=== PATIENT | male | born 1955 ===

== ENCOUNTER 2022-07-02 11:23 | Inpatient (IN) | payer MEDICARE ==
[~2022-07-02] VITALS: Ht 167.6 cm; Wt 108.3 kg
[2022-07-02] VITALS (442 sets, daily range): BP systolic 104–130; BP diastolic 63–79; PULSE 71–85; TEMP 98.2–98.9; O2SAT 80–100
[2022-07-02 12:08] LABS: HEMATOCRIT 44.5 % (42.0-52.0); HEMOGLOBIN 14.8 g/dl (13.5-18.0); MEAN CELL VOLUME 92 fl (80.0-100.0); MEAN CORPUSCULAR HEMOGLOBIN 31 pg (27-31); MEAN CORPUSCULAR HGB CONC 33 g/dl (33.0-37.0); MEAN PLATELET VOLUME 12.2 fl (7.4-10.4); PLATELET COUNT 153 K/mm3 (130-400); RED BLOOD COUNT 4.85 M/mm3 (4.20-5.60); REDCELL DISTRIBUTION WIDTH-CV 13.4 % (11.5-14.5)
[2022-07-02 12:27] LABS: ALANINE AMINOTRANSFERASE 29 U/L (0-55); ALBUMIN 3.1 gm/dL (3.4-4.8); ALKALINE PHOSPHATASE 114 U/L (40-150); ANION GAP 20 mmol/L (7-16); AST,SGOT 18 U/L (5-34); BAND 25 % (0-10); BILIRUBIN,TOTAL 1.7 mg/dL (0.2-1.2); BLOOD UREA NITROGEN 31 mg/dL (8-26); CALCIUM 8.1 mg/dL (8.4-10.2); CARBON DIOXIDE 16 mmol/L (23-31); CHLORIDE 95 mmol/L (98-107); CREATININE, serum 2.76 mg/dL (0.72-1.25); NEUTROPHILS 53 % (42.0-75.2); PLATELET ESTIMATE NORMAL (NORMAL); POTASSIUM 3.2 mmol/L (3.5-4.5); SODIUM 131 mmol/L (136-145); TOTAL PROTEIN 6.1 gm/dL (6.2-8.1)
[2022-07-02 12:28] LABS: LYMPHOCYTE 10 % (20.0-51.0)
[2022-07-02 12:30] LABS: ALCOHOL(ethanol),MEDICAL < 10 mg/dL (0-10); GLUCOSE 1116 mg/dL (70-99)
[2022-07-02 13:57] LABS: COLLECTION METHOD CLEAN CATCH
[2022-07-02 14:03] LABS: MUCOUS Present (NOT PRESENT); PH 5 (5-8); SQUAMOUS EPITHELIAL 0-2 /hpf (0-10); URINE APPEARANCE Hazy (CLEAR/HAZY); URINE BACTERIA None Seen /hpf (NONE SEEN); URINE BLOOD 3+ (NEGATIVE); URINE COLOR Yellow (YELLOW); URINE GLUCOSE 3+ (NEGATIVE); URINE KETONE Trace (NEGATIVE); URINE NITRATE Negative (NEGATIVE); URINE PROTEIN(semi-quant) Negative (NEGATIVE); URINE RBC 20-50 /hpf (0-2); URINE UROBILINOGEN Negative (NEGATIVE)
[2022-07-02 14:18] LABS: TRICYCLIC ANTIDEPRESS URINE NEGATIVE
--- NOTE | 2022-07-02 17:30 | NUR ---
PATIENT HAS CANE IN THE ROOM BROUGHT OVER FROM ED; PATIENT IS WEARING A NECKLACE, BRACELET AND WATCH. BELONGINGS WERE BROUGHT OVER IN BAGS FROM THE ED AND ARE IN THE PATIENTS ROOM.
--- NOTE | 2022-07-02 18:30 | NUR ---
PATIENT ARRIVED ON THE UNIT AT APPROX 1700 VIA NURSE FROM ED; PATIENT ARRIVED WITH AND CONTINUED WEARING OXYGEN AT 2 LPM VIA NC. VITAL SIGNS WERE ALL WITHIN NORMAL LIMITS. PATIENT IS PRIMARILY POLISH SPEAKING BUT DOES UNDERSTAND AND SPEAK SOME BOLIVIAN. PATIENT HAD INSULIN AND NS RUNNING UPON ARRIVAL, THE FLUIDS WERE BEING BOLUSED IN AND THE INSULIN WAS BEING TITRATED BASED ON DKA PROTOCOL. DR. SIM WAS NOTIFIED OF PATIENTS ARRIVAL AND WITH THE USE OF VOYCE USED A POLISH SPEAKING INTREPRETOR, SESSION NUMBER [id number].
[2022-07-02 19:26] LABS: CREATININE, serum 1.76 mg/dL (0.72-1.25)
[2022-07-02 19:29] LABS: POTASSIUM 2.7 mmol/L (3.5-4.5)
[2022-07-02 21:24] LABS: CALCIUM 7.9 mg/dL (8.4-10.2); CREATININE, serum 1.61 mg/dL (0.72-1.25); POTASSIUM 3.2 mmol/L (3.5-4.5)
[2022-07-02 23:29] LABS: CALCIUM 7.7 mg/dL (8.4-10.2); CREATININE, serum 1.33 mg/dL (0.72-1.25); POTASSIUM 3.6 mmol/L (3.5-4.5)
[2022-07-03] VITALS (846 sets, daily range): BP systolic 98–164; BP diastolic 43–87; PULSE 72–115; TEMP 98–98.9; O2SAT 44–100
[2022-07-03 01:38] LABS: CALCIUM 7.9 mg/dL (8.4-10.2); CREATININE, serum 1.24 mg/dL (0.72-1.25); POTASSIUM 3.5 mmol/L (3.5-4.5)
[2022-07-03 03:26] LABS: CALCIUM 7.8 mg/dL (8.4-10.2); CREATININE, serum 1.16 mg/dL (0.72-1.25); POTASSIUM 3.3 mmol/L (3.5-4.5)
[2022-07-03 06:05] LABS: HEMATOCRIT 38.5 % (42.0-52.0); HEMOGLOBIN 13.3 g/dl (13.5-18.0); MEAN CELL VOLUME 88 fl (80.0-100.0); MEAN CORPUSCULAR HEMOGLOBIN 31 pg (27-31); MEAN CORPUSCULAR HGB CONC 35 g/dl (33.0-37.0); MEAN PLATELET VOLUME 11.8 fl (7.4-10.4); PLATELET COUNT 110 K/mm3 (130-400); RED BLOOD COUNT 4.36 M/mm3 (4.20-5.60); REDCELL DISTRIBUTION WIDTH-CV 13.4 % (11.5-14.5)
[2022-07-03 06:49] LABS: BAND 30 % (0-10); EOSINOPHIL 3 % (0-4); LYMPHOCYTE 17 % (20.0-51.0); NEUTROPHILS 43 % (42.0-75.2); PLATELET ESTIMATE NORMAL (NORMAL)
[2022-07-03 06:52] LABS: CALCIUM 7.9 mg/dL (8.4-10.2); CREATININE, serum 0.99 mg/dL (0.72-1.25); MAGNESIUM 2.2 mg/dL (1.6-2.6)
[2022-07-03 07:09] LABS: TROPONIN-I 0.215 ng/mL (0.00-0.033)
--- NOTE | 2022-07-03 08:00 | NUR ---
EVALUATED PT'S RASH IN GROIN. STATES HE FEELS MAINLY FOLLICULITIS AND DERMATITIS. ISOLATOIN DCD
[2022-07-03 08:29] LABS: CALCIUM 7.9 mg/dL (8.4-10.2); CREATININE, serum 0.9 mg/dL (0.72-1.25); POTASSIUM 3.8 mmol/L (3.5-4.5)
--- NOTE | 2022-07-03 09:39 | NUR ---
Commander Internal Affairs met with patient to complete initial intake with the assistance of [facility] [employer] (session #[id number]) as patient primarily speaks irish, but does also speak some salvadorean. Patient reported he lives in [place], [place] and was traveling through [place]. Patient stated though that he plans to return to [place] upon discharge as he needs to pay his rent. Patient states he lives alone in [place] and plans to drive himself home at time of discharge. Patient is not and has four children, three sons and one daughter. Patient's sons are David (ph#[phone]), Jake (ph#[phone]), and Sharif (ph#[phone]). Patient also has a daughter named Ashely. Patient advised his children are over 18 and they best point of contact is his son, Charly.
[2022-07-03 09:52] LABS: CALCIUM 7.8 mg/dL (8.4-10.2); CREATININE, serum 0.87 mg/dL (0.72-1.25); POTASSIUM 3.5 mmol/L (3.5-4.5)
[2022-07-03 11:43] LABS: CALCIUM 8.1 mg/dL (8.4-10.2); CREATININE, serum 0.89 mg/dL (0.72-1.25); POTASSIUM 3.5 mmol/L (3.5-4.5)
--- NOTE | 2022-07-03 13:32 | NUR ---
LEVIMIR GIVEN PER . INSULIN DRIP STOPPED.
--- NOTE | 2022-07-03 14:46 | NUR ---
Lav Crewman spoke with Klaudia Dietitian about patient's new diabetes diagnosis. Klaudia advised patient was concerned about filling medications here vs back in [place]. Patient also reported to Klaudia that his medications were "messed up" in the past somewhere in [place]. EDMUND attempted to contact patient's son, David. EDMUND was unable to leave a message as David did not have voicemail set up.
--- NOTE | 2022-07-03 15:22 | NUR ---
CALLED AND STATES AFTER DISCUSSION WITH [facility] PT DOES NOT NEED TO BE TESTED OR PLACE IN ISOLATION.
[2022-07-04] VITALS (399 sets, daily range): BP systolic 112–167; BP diastolic 68–91; PULSE 79–96; TEMP 98–99.8; O2SAT 48–100
[2022-07-04 04:44] LABS: HEMOGLOBIN 12.8 g/dl (13.5-18.0); MEAN CELL VOLUME 89 fl (80.0-100.0); MEAN CORPUSCULAR HEMOGLOBIN 31 pg (27-31); MEAN CORPUSCULAR HGB CONC 35 g/dl (33.0-37.0); MEAN PLATELET VOLUME 11.8 fl (7.4-10.4); PLATELET COUNT 95 K/mm3 (130-400); RED BLOOD COUNT 4.14 M/mm3 (4.20-5.60); REDCELL DISTRIBUTION WIDTH-CV 13.4 % (11.5-14.5)
[2022-07-04 05:10] LABS: CALCIUM 8.3 mg/dL (8.4-10.2); CREATININE, serum 0.77 mg/dL (0.72-1.25); POTASSIUM 3.3 mmol/L (3.5-4.5)
[2022-07-04 05:36] LABS: BAND 26 % (0-10); EOSINOPHIL 2 % (0-4); LYMPHOCYTE 16 % (20.0-51.0); NEUTROPHILS 53 % (42.0-75.2); PLATELET ESTIMATE NORMAL (NORMAL)
--- NOTE | 2022-07-04 08:44 | NUR ---
BEDSIDE REPORT RECEIEVED FROM JUANCARLOS RUIZ. PT RESTING IN BED AT THIS TIME. NO MEDS INFUSING. VSS. PT DID REMOVE IV TO L HAND, BLEEDING IS CONTROLLED. CALL LIGHT IN REACH.
--- NOTE | 2022-07-04 17:44 | NUR ---
REPORT CALLED TO JUANCARLOS MCLEAN. PT TRANSFERRED TO ROOM 341 VIA WC. VSS. PT TOOK BAG OF CLOTHES, NECKLACE, PHONE WITH HIM.
--- NOTE | 2022-07-04 18:24 | NUR ---
PT ARRIVED TO ROOM 341 VIA WC APPROXIMATELY 1758, VSS, FALL PRECAUTIONS IN PLACE, CALL LIGHT IN REACH
--- NOTE | 2022-07-04 23:18 | NUR ---
UPON ASSESSMENT, BARREL BUILDER USED. PT ALERT AND ORIENTED TO PERSON, PLACE, TIME, AND SITUATION. ONLY REQUESTS IS FOR CRACKERS AND A SNACK. PT INSISTS NO NEED FOR A BED ALARM, THOUGH THIS RN HAS NOT WITNESSED AMBULATION AT THIS TIME. WILL CONTINUE TO MONITOR CLOSELY. FULL PPE UTILIZED
[2022-07-05] VITALS (7 sets, daily range): BP systolic 102–141; BP diastolic 51–86; PULSE 66–92; TEMP 97.9–98.6
[2022-07-05 07:29] LABS: HEMOGLOBIN 11.9 g/dl (13.5-18.0); MEAN CELL VOLUME 90 fl (80.0-100.0); MEAN CORPUSCULAR HEMOGLOBIN 30 pg (27-31); MEAN CORPUSCULAR HGB CONC 33 g/dl (33.0-37.0); MEAN PLATELET VOLUME 12.7 fl (7.4-10.4); PLATELET COUNT 113 K/mm3 (130-400); RED BLOOD COUNT 3.99 M/mm3 (4.20-5.60); REDCELL DISTRIBUTION WIDTH-CV 13.7 % (11.5-14.5)
[2022-07-05 07:31] LABS: HEMATOCRIT 35.7 % (42.0-52.0)
[2022-07-05 07:44] LABS: CALCIUM 7.9 mg/dL (8.4-10.2); CREATININE, serum 0.78 mg/dL (0.72-1.25); POTASSIUM 3.4 mmol/L (3.5-4.5)
[2022-07-05 07:56] LABS: BAND 2 % (0-10); LYMPHOCYTE 11 % (20.0-51.0); NEUTROPHILS 80 % (42.0-75.2); PLATELET ESTIMATE DECREASED (NORMAL)
--- NOTE | 2022-07-05 22:29 | NUR ---
PT GAVE VERBAL PERMISSION WITH TEACHER LIP READING TO RELAY MEDICAL INFORMATION TO HIS DAUGHTER OVER THE PHONE AT THIS TIME.
[2022-07-06 00:04] VITALS: BP 123/70; PULSE 87; TEMP 98.4
[2022-07-06 04:00] VITALS: BP 149/54; PULSE 93; TEMP 97.7
--- NOTE | 2022-07-06 07:13 | NUR ---
VSS, PT RESTING IN BED, FALL PRECAUTIONS IN PLACE, PT A&O X4
[2022-07-06 07:25] VITALS: BP 94/50; PULSE 95; TEMP 100.4
[2022-07-06 07:52] LABS: BASO % 0.4 % (0.0-2.0); EOS # 0.1 K/mm3 (0.0-0.7); EOS % 1.6 % (0.0-4.0); GRAN # 4.7 K/mm3 (1.4-6.5); GRAN % 69.4 % (42.2-75.2); HEMOGLOBIN 11.4 g/dl (13.5-18.0); LYMPH # 1.4 K/mm3 (1.2-3.4); LYMPH % 20.2 % (20.0-51.0); MEAN CELL VOLUME 90 fl (80.0-100.0); MEAN CORPUSCULAR HEMOGLOBIN 30 pg (27-31); MEAN CORPUSCULAR HGB CONC 34 g/dl (33.0-37.0); MEAN PLATELET VOLUME 12.7 fl (7.4-10.4); MONO # 0.5 K/mm3 (0.1-0.6); MONO % 7.8 % (1.7-9.3); PLATELET COUNT 103 K/mm3 (130-400); RED BLOOD COUNT 3.78 M/mm3 (4.20-5.60); REDCELL DISTRIBUTION WIDTH-CV 13.4 % (11.5-14.5)
[2022-07-06 08:06] LABS: CALCIUM 7.8 mg/dL (8.4-10.2); CREATININE, serum 0.72 mg/dL (0.72-1.25); POTASSIUM 3.4 mmol/L (3.5-4.5)
--- NOTE | 2022-07-06 09:07 | NUR ---
PT REFUSING INSULIN AND HEPARIN, STATES HE HAS A MADRID,
[2022-07-06 09:30] LABS: HSV SOURCE BLOOD (())
[2022-07-06 12:07] VITALS: BP 92/54; PULSE 86; TEMP 98.5
[2022-07-06 17:40] VITALS: BP 147/78; PULSE 92; TEMP 98
[2022-07-06 20:10] VITALS: BP 137/61; PULSE 96; TEMP 99.5
--- NOTE | 2022-07-07 00:10 | NUR ---
pt refuses to let RN give heparin injection, upset about not getting anything good to eat for dinner, dinner tray untouched, offered sandwich box, pt stated he would eat that later, was able to get VS taken after pt given fresh ice water and diet sprite. pt also refused to let this RN obtain respiratory panel, will try again in am.
[2022-07-07 00:13] VITALS: BP 100/54; PULSE 93; TEMP 98.7
[2022-07-07 05:07] VITALS: BP 127/84; PULSE 88; TEMP 98
[2022-07-07 06:05] LABS: HEMOGLOBIN 11.3 g/dl (13.5-18.0); MEAN CELL VOLUME 88 fl (80.0-100.0); MEAN CORPUSCULAR HEMOGLOBIN 31 pg (27-31); MEAN CORPUSCULAR HGB CONC 35 g/dl (33.0-37.0); MEAN PLATELET VOLUME 11.6 fl (7.4-10.4); PLATELET COUNT 122 K/mm3 (130-400); RED BLOOD COUNT 3.68 M/mm3 (4.20-5.60); REDCELL DISTRIBUTION WIDTH-CV 13.3 % (11.5-14.5)
--- NOTE | 2022-07-07 06:12 | NUR ---
respiratory virus panel sent this am with am lab, pt reports mild headache, but no pain in groin area from rash, did not want anything for the MADRID. patrick cath patent/secure with 700 cc ailyn urine with heavy sediment out this am. pt drinking diet sprite and water, wanting to order breakfast. PICC line in TOSHIA patent/secure.
[2022-07-07 06:18] LABS: HEMATOCRIT 32.5 % (42.0-52.0)
[2022-07-07 06:25] LABS: CALCIUM 7.7 mg/dL (8.4-10.2); CREATININE, serum 0.71 mg/dL (0.72-1.25); POTASSIUM 3.2 mmol/L (3.5-4.5)
[2022-07-07 06:53] LABS: BAND 8 % (0-10); EOSINOPHIL 1 % (0-4); LYMPHOCYTE 21 % (20.0-51.0); NEUTROPHILS 58 % (42.0-75.2); PLATELET ESTIMATE NORMAL (NORMAL)
[2022-07-07 08:00] VITALS: BP 101/47; PULSE 86; TEMP 100.6
[2022-07-07] MEDS ORDERED: INSULIN PEN NE1 EAC1 MC (09:32)
[2022-07-07] MEDS ORDERED: LANCETS MC (09:32)
[2022-07-07] MEDS ORDERED: FREESTYLE PREC1 EAC5 MC (09:32)
[2022-07-07] MEDS ORDERED: BD ALCOHOL1 SWA MC (09:32)
[2022-07-07] MEDS ORDERED: GLUCOSE TEST ST1 DEV MC (09:32)
[2022-07-07] MEDS ORDERED: ASPIRIN E.C. 8181 MG PO (09:33)
[2022-07-07] MEDS ORDERED: LEVEMIR FLEX100 U/ML SQ (09:34)
[2022-07-07] MEDS ORDERED: AMOXICILLIN 8751 TAB PO (09:40)
[2022-07-07] MEDS ORDERED: GLUCOPHAGE500 MG/TAB PO (09:40)
[2022-07-07] MEDS ORDERED: NOVOLOG FLEX100 U/ML SQ (09:41)
[2022-07-07] MEDS ORDERED: GLUCAGON EMERGEN1 M1 SQ (09:47)
--- NOTE | 2022-07-07 11:03 | NUR ---
PATIENT EATING BREAKFAST UPON ENTRY TO ROOM. PATIENT DENIES PAIN AT THIS TIME. PICC TO RIGHT UPPER ARM FLUSHES WELL WITH GOOD BLOOD RETURN. SANCHEZ TO DD, LULÚ WITH SEDIMENT. ASSESSMENT PERFORMED. AM MEDS ADMINISTERED. PATIENT RESTING IN BED WITH CALL LIGHT NEAR.
[2022-07-07 11:59] LABS: HIV-1p24 Antigen Non-Reactive
[2022-07-07 12:00] VITALS: BP 138/67; PULSE 89; TEMP 98
[2022-07-07 12:00] LABS: HIV 1/2 Antibodies Non-Reactive
[2022-07-07 16:00] VITALS: BP 140/76; PULSE 56; TEMP 98.4
--- NOTE | 2022-07-07 16:23 | NUR ---
USING THE INTERNAL COMBUSTION ENGINE INSPECTOR, NURSE CALLED [facility] AND SCHEDULED AN APPOINTMENT TO ESTABLISH THIS PATIENT A PCP. PATIENT STATED THAT HE WOULD GO, BUT INSISTED THAT [employer] ARE TRYING TO POISON HIM AND HE WOULD USE HIS DOCTOR IN [place]. HE STATED THAT HIS DIABETES, WHICH IS A NEW DIAGNOSIS, WOULD BE HEALED IN A WEEK. NURSE ASKED INTERNAL COMBUSTION ENGINE INSPECTOR TO EXPLAIN THAT DIABETES MANAGEMENT IS VERY IMPORTANT AND TO FOLLOW CLOSELY WITH HIS PROVIDER TO ENSURE HIS BLOOD SUGARS DO NOT REACH THAT LEVEL AGAIN. NURSE USED INTERNAL COMBUSTION ENGINE INSPECTOR TO CALL HIS RIDE FROM [place]. RIDE SAID HE WOULD BE HERE TOMORROW TO PICK THIS PATIENT UP AND TAKE HIM HOME. PATIENT STATED THAT HE HAD NO QUESTIONS AND WOULD COMPLY.
[2022-07-07 20:06] VITALS: BP 108/64; PULSE 91; TEMP 98.1
--- NOTE | 2022-07-07 21:00 | NUR ---
SANCHEZ CATHETER dc'd d/t pending discharge, explained to pt that he needs to urinate in the urinal, pt asking where his cane is, states he had it last in ICU, will call ICU and check. pt also wanting his wet clothing hung up to dry, pair of pants, hat, belt, keys and coins in belongings bag saturated in liquid, strong, foul smell coming from bag, attempted to wash pants out in bathtub without success, house designer notified, SW can provide pt with clothing on discharge. items placed in bag for pt.
[2022-07-08] VITALS: BP 98/43; PULSE 88; TEMP 98
[2022-07-08 04:27] VITALS: BP 94/50; PULSE 89; TEMP 98
--- NOTE | 2022-07-08 06:08 | NUR ---
pt has not voided since darnell hdez, this RN went in to encourage pt to urinate, pt stated "no, no" and gestured for me to go away with his hand. explained that pt would have to urinate before he could be discharged, was not interested in trying at this time, urinal at bedside. spoke with ICU charge, she was unable to locate his cane. pt asked for sandwich box and diet sprite during the noc, provided sandwich, diet jello, diet pudding and diet sprite, drank part of sprite, did not eat sandwich. pt has cooperated with VS and meds this shift, slept most of the noc.
[2022-07-08 08:12] VITALS: BP 113/65; PULSE 91; TEMP 99
--- NOTE | 2022-07-08 10:20 | NUR ---
The patient has been in airdrop isolation. The patient is to discharge today, 07/08. SW attempted to contact the patient, using the poultry inspector services to read the IM form outloud to him. The patient did not answer and his mailbox is full and the poultry inspector was unable to leave a voicemail.
--- NOTE | 2022-07-08 11:40 | NUR ---
DISCHARGE INSTRUCTIONS GIVEN TO PATIENT AND TRANSPORTER. FOLLOW UP APPOINTMENTS DISCUSSED. PATIENT EDUCATION PROVIDED. PATIENT AND TRANSPORTER DENIED ANY QUESTIONS OR CONCERNS. PATIENT ESCORTED OUT VIA WHEELCHAIR.
== END 2022-07-08 11:35 | disposition home or self-care (01) | DRG 637 ==
LOC: COL.ER 11:23 → ICU 13:00 → SURG 13:00 → ICU 17:11 → SURG 07-04 12:01
PROVIDERS: Family Medicine; Physician Assistant; Student in an Organized Health Care Education/Training Program; ADMIT Internal Medicine
PROC: 02HV33Z Insertion of Infusion Device into Superior Vena Cava, Percutaneous Approach (ICD-10-PCS; principal; 2022-07-02)
DX: E11.01 Type 2 diabetes mellitus with hyperosmolarity with coma (principal); J96.01 Acute respiratory failure with hypoxia; G93.41 Metabolic encephalopathy; A41.9 Sepsis, unspecified organism; N17.9 Acute kidney failure, unspecified; N39.0 Urinary tract infection, site not specified; I24.8 Other forms of acute ischemic heart disease; I10 Essential (primary) hypertension; E87.6 Hypokalemia; I95.9 Hypotension, unspecified; L73.9 Follicular disorder, unspecified; Z20.822 Contact with and (suspected) exposure to COVID-19
CPT/HCPCS: 86780; C1751; J0692; J0696; J1644; J1815; J3480; J7030